=== PATIENT | male | born 1985 ===

== ENCOUNTER 2021-09-13 08:07 | Emergency (ER) | payer MEDICAID ==
[~2021-09-13] VITALS: Ht 172.7 cm; Wt 78.0 kg
[2021-09-13] MEDS ORDERED: HYDROcodone-ACET 5/325MG TAB PO ONE (08:45)
[2021-09-13 08:51] VITALS: BP 145/101
== END 2021-09-13 09:06 | disposition home or self-care (01) ==
LOC: ER 08:07
DX: K04.7 Periapical abscess without sinus (principal)